=== PATIENT | male | born 1940 | race Caucasian/White ===

== ENCOUNTER 2018-02-01 11:32 | Emergency (ER) | payer MEDICARE, MEDICAID ==
[~2018-02-01] VITALS: Ht 165.1 cm; Wt 86.0 kg
[2018-02-01] MEDS ORDERED: DIPHENHYDRAMINE 50MG/ML VIAL ONE (12:49)
[2018-02-01] MEDS ORDERED: METHYLPREDNISOLONE SOD SUCC 40 MG/ML VIAL ONE (12:50)
[2018-02-01 12:58] LABS: BASOPHILS % 0.6 % (0.0-2.0); EOSINOPHILS % 5.8 % (0.0-5.0); HEMATOCRIT. 35.9 % (42.0-52.0); HEMOGLOBIN. 12.1 g/dL (14.0-18.0); LYMPHOCYTES % 22.9 % (20.0-50.0); MEAN CORPUSCULAR HEMOGLOBIN 32.3 pg (28.0-32.0); MEAN CORPUSCULAR VOLUME 95.3 fL (80.0-94.0); MEAN PLATELET VOLUME 6.9 fl (7.4-10.4); MONOCYTES % 9.9 % (2.0-8.0); NEUTROPHILS % 60.8 % (40.0-76.0); PLATELET 222 x1000/uL (130-400); RED BLOOD CELL COUNT 3.76 mill/uL (4.7-6.1); RED CELL DISTRIBUTION WIDTH 15.5 % (11.6-14.6)
[2018-02-01 13:04] LABS: CHLORIDE 105 mEq/L (98-107)
[2018-02-01 14:14] VITALS: BP 132/78
[2018-02-03] MEDS ORDERED: ACETAMINOPHEN 325MG TABLET PO STA (11:24)
[2018-02-03 12:02] LABS: BASOPHILS % 0.7 % (0.0-2.0); EOSINOPHILS % 4.8 % (0.0-5.0); HEMOGLOBIN. 12.9 g/dL (14.0-18.0); LYMPHOCYTES % 22.2 % (20.0-50.0); MEAN CORPUSCULAR HEMOGLOBIN 32.6 pg (28.0-32.0); MEAN CORPUSCULAR VOLUME 95.7 fL (80.0-94.0); MONOCYTES % 9.5 % (2.0-8.0); NEUTROPHILS % 62.8 % (40.0-76.0); PLATELET 242 x1000/uL (130-400); RED BLOOD CELL COUNT 3.97 mill/uL (4.7-6.1); RED CELL DISTRIBUTION WIDTH 15.9 % (11.6-14.6)
[2018-02-03 12:05] LABS: CHLORIDE 101 mEq/L (98-107)
[2018-02-03 12:06] LABS: INR 1.7; PROTHROMBIN TIME 17.2 sec (9.1-11.1)
== END 2018-02-01 14:18 | disposition home or self-care (01) ==
LOC: ER 11:32
DX: R51 Headache (principal); R42 Dizziness and giddiness; R05 Cough; I11.0 Hypertensive heart disease with heart failure; I50.9 Heart failure, unspecified; J45.909 Unspecified asthma, uncomplicated
CPT/HCPCS: 36415; 71045; 83880; 84484; 93005; 99284; J1200; J2920

== ENCOUNTER 2018-02-03 10:40 | Emergency (ER) | payer MEDICARE, MEDICAID ==
[~2018-02-03] VITALS: Ht 170.2 cm; Wt 70.0 kg
[2018-02-03] MEDS ORDERED: PRO1 PO (10:47)
[2018-02-03] MEDS ORDERED: NEOAPJ IM (10:47)
[2018-02-03] MEDS ORDERED: PHEN50TA2 PO (10:47)
[2018-02-03] MEDS ORDERED: WARF1TAB85 PO (10:47)
[2018-02-03] MEDS ORDERED: ACETAMINOPHEN 325MG TABLET PO STA (11:29)
[2018-02-03 12:25] LABS: CLARITY URINE CLEAR (CLEAR); COLOR URINE YELLOW (YELLOW); SPECIFIC GRAVITY URINE 1.006 (1.005-1.030)
[2018-02-03 12:26] LABS: KETONES URINE NEGATIVE (NEGATIVE); LEUKOCYTE ESTERASE URINE NEGATIVE (NEGATIVE); NITRITE URINE NEGATIVE (NEGATIVE); OCCULT BLOOD URINE NEGATIVE (NEGATIVE); PROTEIN URINE TRACE (NEGATIVE); UROBILINOGEN URINE 0.2 E.U./dL (0.2-1.0)
[2018-02-03 12:43] LABS: BASOPHILS % 0.6 % (0.0-2.0); EOSINOPHILS % 4.8 % (0.0-5.0); HEMATOCRIT. 37.8 % (42.0-52.0); HEMOGLOBIN. 12.8 g/dL (14.0-18.0); MEAN CORPUSCULAR HEMOGLOBIN 32.3 pg (28.0-32.0); MEAN CORPUSCULAR VOLUME 95.4 fL (80.0-94.0); MEAN PLATELET VOLUME 7.3 fl (7.4-10.4); MONOCYTES % 8.9 % (2.0-8.0); NEUTROPHILS % 61.7 % (40.0-76.0); PLATELET 253 x1000/uL (130-400); RED BLOOD CELL COUNT 3.97 mill/uL (4.7-6.1); RED CELL DISTRIBUTION WIDTH 15.5 % (11.6-14.6)
[2018-02-03 12:44] LABS: CHLORIDE 102 mEq/L (98-107)
[2018-02-03 12:45] LABS: INR 1.8; PROTHROMBIN TIME 17.6 sec (9.1-11.1)
[2018-02-03 16:05] VITALS: BP 146/82
== END 2018-02-03 16:07 | disposition home or self-care (01) ==
LOC: ER 10:40
DX: R51 Headache (principal); J45.909 Unspecified asthma, uncomplicated; I11.0 Hypertensive heart disease with heart failure; I50.9 Heart failure, unspecified; Z88.0 Allergy status to penicillin
CPT/HCPCS: 36415; 84484; 93005; 99284